=== PATIENT | male | born 1955 | race Caucasian/White ===

== ENCOUNTER 2022-05-21 09:51 | Outpatient (CLI) | payer OTHER, SELFPAY ==
--- NOTE | 2022-05-21 10:00 | US_ITS ---
WS: [id number] ULTRASOUND SOFT TISSUES RIGHT neck, submandibular gland. HISTORY: right submandibular gland swelling COMPARISON: None available. TECHNIQUE: 2-D and color Doppler imaging is submitted. The RIGHT submandibular gland measures 4.3 x 1.3 cm. There is mild heterogeneity within the gland. No edema. No mass identified. The LEFT submandibular gland measures 4.2 x 1.0 cm. Visually the RIGHT theodore bmandibular gland does appear larger also. No masses are identified. No adenopathy. US/US soft tissue head neck 41163 IMPRESSION: 1. RIGHT submandibular gland measures slightly greater in size than the LEFT g land. There is mild heterogeneity but no mass in the gland. 2. For additional evaluation of the neck and submandibular glands CT neck with IV contrast may be helpful.
== END 2022-05-21 09:52 | disposition home or self-care (01) ==
PROVIDERS: PCP Family Medicine; Visit Provider Family Medicine
DX: R60.9 Edema, unspecified (principal)
CPT/HCPCS: 76536

== ENCOUNTER 2022-06-24 12:11 | Outpatient (CLI) | payer OTHER, SELFPAY ==
[2022-06-24] MEDS: iohexol 350 mg/mL 500 mL Btl (per mL) IV (12:16)
--- NOTE | 2022-06-24 12:30 | CT_ITS ---
WS: [id number] CT NECK TECHNIQUE: Contrast-enhanced CT of the neck with coronal and sagittal reformatted images. CLINICAL INFORMATION: submandibular gland hypertrophy COMPARISON: None. DLP: 220.[address] scans at [facility] use at least one of these dose optimization techniques: automated e xposure control; mA and/or kV adjustment per patient size (includes targeted exams where dose is matc hed to clinical indication); or iterative reconstruction. FINDINGS: Dental artifact degrades images at the tongue base RIGHT proximal submandibular duct calculus measuring 7 mm. Mild intraductal dilatation RIGHT submandi bular gland. RIGHT submandibular gland is slightly enlarged compared to the LEFT. Dilatation of the mid RIGHT submandibular duct. Possible additional tiny calculus in the distal submandibular duct keyla uring 2 mm deep to the midline maxilla. Mastoid air cells and paranasal sinuses are well aerated. Parotid glands are normal. Normal posterior nasopharynx. Normal parapharyngeal fat. No evidence of supraglottic or glottic mass. Normal thyroid gland. Lung apices appear well aerated. Moderate spondylitic changes cervical spine with disc space narrowing C3-C4 C5-C6 and C6-C7. CT/CT neck w con* [id number] IMPRESSION: Images of the tongue base degraded due to dental artifact. 1. RIGHT proximal submandibular calculus measuring 7 mm with mild enlargement of the RIGHT submandibular gland. Minimal surrounding induration. Mild intraduc shlomo dilatation. Findings compatible with sialoadenitis. 2. Additional tiny calculus likely along the distal submandibular duct measuri ng 2 mm deep to the maxilla. 3. LEFT submandibular gland is normal. 4. Normal parotid glands. 5. No other acute findings.
== END 2022-06-24 12:12 | disposition home or self-care (01) ==
PROVIDERS: PCP Family Medicine; Visit Provider Family Medicine
DX: R60.9 Edema, unspecified (principal); R59.0 Localized enlarged lymph nodes
CPT/HCPCS: 70491; Q9967

== ENCOUNTER 2022-10-16 09:16 | Emergency (ER) | payer SELFPAY ==
[2022-10-16 09:23] VITALS: BP 156/79; PULSE 78; RESP 16; TEMP 36.8; O2SAT 97; BMI 23.5
--- NOTE | 2022-10-16 10:33 | ED_ITS ---
HPI - General Adult General: Chief complaint: Dental/Oral Stated complaint: BC sent for swollen jaw Time Seen by Provider: 10/16/22 09:18 Source: patient Mode of arrival: ambulatory History of Present Illness: 66-year-old male presents emergency room from local walk-in clinic he had several months of right sialoadenitis he previously was CT head 7 mm stone is waxed and waned its become worse again lately no fever sweats or chills 2 days ago he was started on some antibiotics he has had approximately 3 doses he states that is not improved he has not been using any cyclical logs. He had previously seen ENT they did recommend excision of the gland if the symptoms persisted but since at that time they were beginning to improve it was just observe this been going on for 5 to 6 months now Onset (ago): month(s) Location: mouth Severity: moderate Quality: aching Pain Consistency: constant Relieving factors: none Exacerbating factors: none Associated symptoms: Deny chest pain, dyspnea, fevers/chills, malaise, nausea, rash or vomiting Treatments prior to arrival: other (Oral antibiotic) Review of Systems Const: Denies: fever(s), chills, body aches, change in appetite, fatigue or malaise ENMT: Denies: throat pain, ear or mastoid pain, nasal discharge or nasal con gestion Card: Denies: chest pain, edema, dyspnea on exertion or orthopnea Resp: Denies: dyspnea, productive cough or non-productive cough GI: Denies: abdominal pain, nausea or vomiting Skin/Breast: Denies: rash or pruritus [facility] ED PFSH: Medical History (Updated 10/16/22 @ 10:37 by Angus Willis DO) Chronic sialoadenitis Surgical History History of colon resection Social History Smoking and tobacco status: current every day smoker cigarettes Packs smoked per day: 1 Physical Exam Const: COMMON NORMALS: no acute distress GENERAL APPEARANCE: cooperative and comfortable ORIENTATION/CONSCIOUSNESS: Yes awake, Yes oriented to person, Yes oriented to place and Yes oriented to time HENMT: COMMON NORMALS: normocephalic, atraumatic and hearing grossly normal bilaterally HEAD & SCALP: normocephalic and atraumatic OTHER: No cervical lymphadenopathy submandibular gland on the right is inflamed and exquisitely tender. Manual able to milk about 2 to 3 mL of purulent fluid from the submandibular gland patient tolerated with some pain. Resp: COMMON NORMALS: normal respiratory effort, No retractions, No use of accessory muscles and clear to auscultation bilaterally AUSCULTATION: clear to auscultation bilaterally Cardio: COMMON NORMALS: regular rate, regular rhythm and No murmurs present (Cardio) RATE: regular rate RHYTHM: regular rhythm GI: COMMON NORMALS: Soft to palpation and No hepatosplenomegaly present AUSCULTATION: Yes normoactive bowel sounds PALPATION: Yes Soft to palpation, No Tenderness to palpation present (GI), No Guarding due to palpation present (GI) and Yes No hepatosplenomegaly present Extremity: COMMON NORMALS: normal to inspection, capillary refill normal, no clubbing, cyanosis or edema, no calf tenderness and no pedal edema Neuro: SENSORIUM/ORIENTATION: Yes oriented to person, Yes oriented to place and Yes oriented to time Skin: COMMON NORMALS: no rashes or lesions noted GENERAL SKIN EXAM: no rashes or lesions noted Course Vital Signs: Vital signs: Vital Signs Temperature 98.2 F 10/16/22 09:23 Pulse Rate 78 10/16/22 09:23 Respiratory Rate 16 10/16/22 09:23 Blood Pressure 156/79 10/16/22 09:23 Pulse Oximetry 97 10/16/22 09:23 Oxygen Delivery Me thod Room Air 10/16/22 09:23 MDM - General Adult Medical Decision Making Discussed Dr. Bermudez on-call ENT he concurs recommends continued antibiotics cyclical logs and pain medications as needed. We will make arrangements for follow-up. He did not recommend a repeat CT to unlikely to change to the recommendations based on the fact patient has such a large stone will most likely need excision of the gland. We did milk about 3 mL of purulent fluid from the submandibular gland on the right moderately uncomfortable for the patient but tolerated. Discharged home continue previously prescribed antibiotics hydrocodone and ondansetron given also encouraged to use cyclical logs information given at discharge regarding sialoadenitis Medical Records I reviewed the patient's medical records. Discharge Plan Discharge Patient Disposition: Home Clinical Impression: Acute on chronic sialoadenitis Condition: Stable Prescriptions: New hydrocodone-acetaminophen 5-325 mg tablet 1 tab PO Q6H PRN (Reason: pain) Qty: 20 0RF ondansetron HCl 4 mg tablet 4 mg PO Q6H PRN (Reason: nausea and vomiting) Qty: 20 0RF Discharge Orders: Discharge ED (Routine); Ordered 10/16/22 Ordered By: Angus Willis Referrals: Yaneli Pimentel MD [Primary Care Provider] - Patient Instructions: Sialoadenitis (ED), Opioid Safety, Pain Management Activity Restrictions/Additional Instructions: Case management make arrangements for you to follow-up with ENT next week. Use cycle gobs nausea and pain medications as needed continue the previously prescribed antibiotics. 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
--- NOTE | 2022-10-18 09:05 | DCPLANNER ---
Addendum entered by Kym Goldstein 10/18/22 15:38: supply chain logistics manager called [facility] to confirm that clinic received patients information. supply chain logistics manager was told that clinic had received patients information and that patient had an appointment scheduled. Original Note: supply chain logistics manager had message to schedule a follow up appointment for patient with ENT. supply chain logistics manager faxed patients information to the front office staff at Dr. Aly office. Patients information will be printed and reviewed. Clinic will call patient with appointment information.
== END 2022-10-16 09:50 | disposition home or self-care (01) ==
PROVIDERS: Emergency Provider Family Medicine; PCP Family Medicine
DX: K11.23 Chronic sialoadenitis (principal); F17.210 Nicotine dependence, cigarettes, uncomplicated
CPT/HCPCS: 99283